=== PATIENT | female | born 1985 | race African-American/Black ===

== ENCOUNTER 2016-09-23 11:37 | Emergency (ER) | payer OTHER, MEDICAID ==
[~2016-09-23] VITALS: Ht 149.9 cm; Wt 100.0 kg
[2016-09-23 11:43] VITALS: BP 128/86; PULSE 90; RESP 20; TEMP 98.8; O2SAT 98
--- NOTE | 2016-09-23 11:55 | PD ---
Physical Exam Date Seen by Provider: Sep 23, 2016 Time Seen by Provider: 11:52 Narrative Patient seen in triage. Complaints of Bilateral eye drainage and crusting for 2 weeks. Has some mild blurred vision. Patient has Hx. Brain Tumor with surgery in 2011. Patient has No Fever, or JOSEPH. Vitals stable. Patient waiting for Bed placement. Data Data Last Documented VS Vital Signs Date Time Temp Pulse Resp B/P Pulse Ox O2 Delivery O2 Flow Rate FiO2 09/23/16 11:43 98.8 90 20 128/86 98 Room Air [facility] Medical Record Reviewed: Yes Supervised Visit with ABIGAIL: Yes Condition: Stable Kory Santana Sep 23, 2016 11:55
[2016-09-23] MEDS ORDERED: IBUP800T23 PO (13:11)
[2016-09-23] MEDS ORDERED: ERYTOIN10 RIGHT EYE (13:11)
--- NOTE | 2016-09-23 13:12 | PD ---
HPI Chief Complaint: Eye Problems/Injury Time Seen by Provider: 13:09 Travel History International Travel<30 days: No Contact w/Intl Traveler<30days: No Traveled to known affect area: No History of Present Illness HPI 31-year-old female presents to the emergency Department with complaint of right eye pain and drainage 2 weeks. Denies trauma to the eye or known foreign body. Reports her vision is a little blurry compared to normal, but states that she has bad vision and does not wear contacts or glasses. Denies fever, chills, nausea, vomiting. Reports waking up in the morning with her eye crusted shut. Reports photophobia to the right eye. Has tried dry eye drops with no relief of symptoms. No one else with similar symptoms. Does not have an established primary care provider but says that she can get one. No known allergies. No other modifying factors or associated signs and symptoms. PFSH Past Medical History Diabetes: Yes Social History Tobacco Use: No Allergies-Medications Reported Meds & Prescriptions Reported Meds & Active Scripts Active Ibuprofen 800 Mg Tab 800 Mg PO Q6HR PRN Erythromycin Opth Oint 5 Mg/Gm Oint 1 Applic RIGHT EYE QID Review of Systems Except as stated in HPI: all other systems reviewed are Neg Physical Exam Narrative GENERAL: Well-nourished, well-developed female patient, in no acute distress; afebrile, nontoxic-appearing SKIN: Warm and dry. HEAD: Atraumatic. Normocephalic. EYES: Pupils equal and round at 3 mm with brisk reaction. PERRLA. EOMI. visual acuity right 20/50, left 20/50, both 20/50. Right lid eversion with no foreign body noted. Right eye with scleral erythema and scleral hemorrhage noted to the lateral aspect; and mild upper and lower lid edema. No orbital tenderness, erythema or cellulitis. Right eye with photophobia. No consensual photophobia. No scleral icterus. Right eye with Purulent drainage drainage. Yadav lamp exam reveals a small, possible corneal abrasion to the 4 o'clock position over the iris. Tonometry reading of right eye is 11. ENT: Mucosa pink and moist. Airway patent. NECK: Trachea midline. CARDIOVASCULAR: Regular rate. RESPIRATORY: No accessory muscle use. GASTROINTESTINAL: Rounded. NEUROLOGICAL: Awake and alert. Oriented 3. No obvious cranial nerve deficits. Motor grossly within normal limits. Normal speech. PSYCHIATRIC: Appropriate mood and affect; insight and judgment normal. Data Data Last Documented VS Vital Signs Date Time Temp Pulse Resp B/P Pulse Ox O2 Delivery O2 Flow Rate FiO2 09/23/16 11:43 98.8 90 20 128/86 98 Room Air MDM Medical Decision Making Medical Screen Exam Complete: Yes Emergency Medical Condition: Yes Medical Record Reviewed: Yes Differential Diagnosis Corneal abrasion, foreign body, scleral hemorrhage, conjunctivitis Narrative Course 31-year-old female with right eye conjunctivitis and a possible punctuate corneal abrasion at the 4 o'clock position. She has had eye symptoms for 2 weeks. The eye does have purulent drainage. Upper and lower mild eyelid edema. There is a large scleral hemorrhage to the lateral aspect of the eye. Patient does not wear corrective lenses and reports her vision is bad. Her visual acuity is 20/50 to the right, left, and bilateral eyes. Tonometry reading is 11 to the right eye. Erythromycin eye ointment prescribed for home. Ibuprofen prescribed for home. Instructed patient to follow up with ophthalmology. Patient verbalizes understanding and agreement with treatment plan. Patient is medically cleared and stable for discharge. Discussed reasons to return to the emergency department. Instructed patient to follow up with primary care provider. Patient agrees with treatment plan. The patients vital signs are stable and the patient is stable for outpatient follow-up and treatment. Patient discharged home, stable and in no acute distress. Diagnosis Primary Impression: Conjunctivitis, right eye Qualified Code: H10.9 - Conjunctivitis of right eye, unspecified conjunctivitis type Additional Impression: Scleral hemorrhage of right eye Referrals: [facility] [employer] Primary Care Physician Patient Instructions: Conjunctivitis (ED), General Instructions Additional Instructions: Conjunctivitis is contagious Use antibiotic drops as prescribed Apply warm or cool compresses to both eyes for a few minutes several times daily to minimize irritation Avoid triggers, such as allergens, that may irritate your eyes Wash your hands frequently Do not share washcloths, towels, pillows, or any other material that has touched your eyes with any other household members Follow-up with your primary care provider Follow-up with ophthalmology Return to the emergency department immediately with worsening of symptoms Med/Other Pt SpecificInfo: Prescription(s) given Scripts Ibuprofen 800 Mg Sln111 Mg PO Q6HR PRN (PAIN) #30 TAB Ref 0 Prov:Laura Bedolla 09/23/16 Erythromycin Opth Oint 5 Mg/Gm Oint1 Applic RIGHT EYE QID #1 TUBE Ref 0 Prov:Laura Bedolla 09/23/16 Disposition: 01 DISCHARGE HOME Condition: Stable Laura Bedolla Sep 23, 2016 13:12
== END 2016-09-23 13:29 | disposition home or self-care (01) ==
LOC: NEPB 11:37
DX: H10.9 Unspecified conjunctivitis (principal); H15.89 Other disorders of sclera; H53.8 Other visual disturbances; E11.9 Type 2 diabetes mellitus without complications
CPT/HCPCS: 99282